=== PATIENT | male | born 1955 | race Caucasian/White ===

== ENCOUNTER → 2017-09-11 | Outpatient (CLI) | payer OTHER | LOC: MMGSC 15:34 | PROVIDERS: ATTEND Family Medicine | DX: A51.39 Other secondary syphilis of skin (principal) | CPT/HCPCS: 87070; 87075; 87205 ==

== ENCOUNTER → 2017-10-01 | Outpatient (CLI) | payer OTHER ==
[2017-10-01 17:48] LABS: Blood Urea Nitrogen 21 mg/dL (9-20); Non-African American GFR(MDRD) >60 (>60 ml/min/1.73 sqM)
--- NOTE | 2017-10-02 11:14 | CT ---
EXAMINATION TYPE: CT abdomen pelvis w con DATE OF EXAM: 10/01/2017 COMPARISON: NONE INDICATION: Abnormal US. Right sided bowel mass per patient DLP: 2069 mGycm, Automated exposure control for dose reduction was used. CONTRAST: 100 mL of Omnipaque 300. Study performed with Oral Contrast TECHNIQUE: Axial images were obtained from above the diaphragm to the pubic rami in the axial plane a t 5 mm thick sections. Reconstructed images are reviewed on the computer in the coronal plane. FINDINGS: Limited CT sections are obtained the lung bases. The lung bases are clear. CT ABDOMEN: Liver: Some mild fatty infiltration liver may be present. Spleen: Normal Pancreas: Normal Adrenal glands: The adrenal glands are normal. Gallbladder: Gallstones within the neck of the gallbladder. Kidneys: No masses are evident. No hydronephrosis is present. No cysts are present. Delayed images were obtained through the kidneys, which remain unremarkable. Aorta: Normal Inferior vena cava: Normal. CT PELVIS: Loops of bowel within the abdomen and pelvis are normal. There are loops of bowel which are incom pletely distended or lack oral contrast limiting their evaluation. There is a report of a mass within the right bowel, fecal debris, prominent ileocecal valve, or underlying mass could be considered. Th is is nonspecific. Mass is not otherwise identified. Appendix: Normal as visualized. Urinary bladder: Normal. Genitourinary structures: Prostate is slightly prominent. Osseous structures: No suspicious lytic or sclerotic lesions. Facet changes are present L4-5. IMPRESSIONS: 1. Right-sided bowel mass is not clearly identified but may be within the cecum 2. Mild fatty infiltration liver. 3. Gallstone within the gallbladder. 4. CT abdomen pelvis otherwise appears unremarkable.
== END | disposition home or self-care (01) ==
LOC: RADCTMAIN 17:19
PROVIDERS: ATTEND Family Medicine
DX: N50.9 Disorder of male genital organs, unspecified (principal); K76.0 Fatty (change of) liver, not elsewhere classified; K80.20 Calculus of gallbladder without cholecystitis without obstruction
CPT/HCPCS: 82565; 84520; 74177; 36415; Q9967

== ENCOUNTER 2017-11-01 06:56 | Day surgery (SDC) | payer OTHER ==
[2017-10-29 14:35] VITALS: BMI 31.1
[~2017-11-01 06:56] MED LIST: LACTATED RINGERS 1,000 ML IV SCH; LIDOCAINE 1% 20 ML VIAL (10MG/ML) FOR IV START INTRADERMA PRN
[2017-11-01] MEDS ORDERED: LACTATED RINGERS 1,000 ML IV ONE (06:59)
[2017-11-01 07:09] VITALS: RESP 18; TEMP 97.3
[2017-11-01] MEDS ORDERED: MIDAZOLAM 2 MG/2 ML VIAL IVP ONE (07:16)
[2017-11-01 07:18] LABS: Glucose,Whole Blood 198 mg/dL (75-99)
[2017-11-01] MEDS ORDERED: MIDAZOLAM 2 MG/2 ML VIAL IV ONE (07:21)
[2017-11-01] MEDS ORDERED: PROPOFOL 10 MG/ML 20 ML VIAL IV ONE (07:48)
--- NOTE | 2017-11-01 07:53 | P.GSHP ---
History of Present Illness H&P Date: 11/01/17 Chief Complaint: History of colon polyps This is a 62-year-old male referred from Dr. Eli Segura. Patient presents today for colonoscopy. He has a history of colon polyps. Past Medical History Past Medical History: Diabetes Mellitus, Hyperlipidemia, Thyroid Disorder Additional Past Medical History / Comment(s): CURRENT COUGH. STATES "LUMP WAS FOUND ON CT SCAN" PAST HX GERD History of Any Multi-Drug Resistant Organisms: None Reported Past Surgical History: Joint Replacement, Orthopedic Surgery Additional Past Surgical History / Comment(s): TOTAL LT KNEE; IVANA SHOULDER SURG. EGD 09/06/15, LAPARASCOPIC REMI FUNDOPLASTY Past Anesthesia/Blood Transfusion Reactions: Motion Sickness, Postoperative Nausea & Vomiting (PONV) Smoking Status: Never smoker - Past Family History Mother Family Medical History: Cancer Father Family Medical History: No Reported History Brother(s) Family Medical History: No Reported History Sister(s) Family Medical History: No Reported History Medications and Allergies Home Medications Medication Instructions Recorded Confirmed Type Levothyroxine Sodium [Synthroid] 50 mcg PO DAILY 09/03/15 11/01/17 History Simvastatin [Zocor] 20 mg PO DAILY 09/03/15 11/01/17 History metFORMIN HCL 1,000 mg PO BID 09/03/15 11/01/17 History Allergies Allergy/AdvReac Type Severity Reaction Status Date / Time Penicillins Allergy Rash/Hives Verified 11/01/17 07:03 Surgical - Exam Vital Signs Temp Pulse Resp BP Pulse Ox 97.3 F L 85 18 135/77 95 11/01/17 07:07 11/01/17 07:07 11/01/17 07:07 11/01/17 07:07 11/01/17 07:07 - General well developed, no distress - Eyes PERRL - ENT normal pinna - Neck no masses - Respiratory normal expansion - Cardiovascular Rhythm: regular - Abdomen Abdomen: soft, non tender Results - Labs Abnormal Lab Results - Last 24 Hours (Table) 11/01/17 Range/Units 07:14 POC Glucose (mg/dL) 198 H (75-99) mg/dL Assessment and Plan Assessment: History of colon polyps. We'll perform colonoscopy.
--- NOTE | 2017-11-01 08:01 | P.OP ---
Date of Procedure: 11/01/17 Preoperative Diagnosis: History of colon polyps Postoperative Diagnosis: Normal colonoscopy Procedure(s) Performed: Colonoscopy Anesthesia: MAC Surgeon: Freddie Meza Pathology: none sent Condition: stable Disposition: PACU Description of Procedure: PROCEDURE: The patient was placed on the endoscopy table in the lateral position. Digital rectal examination was performed which revealed no abnormalities. The prostate was symmetrical without nodules. Flexible colonoscope was then placed in the patient's anus and passed throughout the entire colon. The ileocecal valve was visualized. The cecum, ascending, transverse, descending and sigmoid colon were normal. The rectum was normal as well. There were no masses, polyps or diverticula noted in the entire colon. SUMMARY OF FINDINGS: Normal colonoscopy.
[2017-11-01 08:34] VITALS: BP 109/63; PULSE 73
== END 2017-11-01 08:38 | disposition home or self-care (01) ==
LOC: ORWHC2ENDO 06:56
PROVIDERS: ATTEND Surgery
DX: Z12.11 Encounter for screening for malignant neoplasm of colon (principal); Z86.010 Personal history of colon polyps; E11.9 Type 2 diabetes mellitus without complications; E78.5 Hyperlipidemia, unspecified; E07.9 Disorder of thyroid, unspecified; Z79.84 Long term (current) use of oral hypoglycemic drugs; Z79.899 Other long term (current) drug therapy; Z79.890 Hormone replacement therapy; Z88.0 Allergy status to penicillin
CPT/HCPCS: J2250; J2704; G0105; 45378

== ENCOUNTER → 2018-03-02 | Outpatient (CLI) | payer OTHER ==
[2018-03-02 09:53] LABS: Basophils % (A) 0 %; Eosinophils # (A) 0.1 k/uL (0-0.7); Eosinophils % (A) 2 %; HCT 42.7 % (39.0-53.0); HGB 14.9 gm/dL (13.0-17.5); Lymphocytes # (A) 1.8 k/uL (1.0-4.8); Lymphocytes % (A) 29 %; MCH 31.3 pg (25.0-35.0); MCV 89.6 fL (80.0-100.0); Mean Platelet Volume 7.6; Monocytes # (A) 0.3 k/uL (0-1.0); Monocytes % (A) 6 %; Neutrophils # (A) 3.8 k/uL (1.3-7.7); Neutrophils % (A) 62 %; Platelet Count 189 k/uL (150-450); RBC 4.77 m/uL (4.30-5.90); RDW 13.2 % (11.5-15.5); WBC 6.1 k/uL (3.8-10.6)
[2018-03-02 10:11] LABS: ALT 29 U/L (21-72); AST 14 U/L (17-59); Albumin 4.1 g/dL (3.5-5.0); Alkaline Phosphatase 46 U/L (38-126); Anion Gap 11 mmol/L; Blood Urea Nitrogen 17 mg/dL (9-20); Calcium 9.5 mg/dL (8.4-10.2); Carbon Dioxide 24 mmol/L (22-30); Chloride 104 mmol/L (98-107); Cholesterol 134 mg/dL (<200); Glucose 194 mg/dL (74-99); HDL Cholesterol 57 mg/dL (40-60); LDL Cholesterol,Calculated 55 mg/dL (0-99); Potassium 4.2 mmol/L (3.5-5.1); Sodium 139 mmol/L (137-145); Total Bilirubin 0.5 mg/dL (0.2-1.3); Total Protein 6.4 g/dL (6.3-8.2); Triglycerides 110 mg/dL (<150)
[2018-03-02 10:27] LABS: T4, Free (Free Thyroxine) 1.09 ng/dL (0.78-2.19)
== END | disposition home or self-care (01) ==
LOC: LABWHC1 09:27
PROVIDERS: ATTEND Family Medicine
DX: E11.9 Type 2 diabetes mellitus without complications (principal); E03.9 Hypothyroidism, unspecified; E78.5 Hyperlipidemia, unspecified
CPT/HCPCS: 36415; 80053; 80061; 83036; 84439; 84443; 85025

== ENCOUNTER → 2018-05-31 | Outpatient (CLI) | payer OTHER ==
[2018-05-31 19:30] LABS: Hemoglobin A1C 7.7 % (4.0-6.0)
== END | disposition home or self-care (01) ==
LOC: LABWHC1 09:03
PROVIDERS: ATTEND Family Medicine
DX: E11.9 Type 2 diabetes mellitus without complications (principal)
CPT/HCPCS: 36415; 82043; 82570; 83036

== ENCOUNTER → 2018-12-19 | Outpatient (CLI) | payer OTHER ==
--- NOTE | 2018-12-19 15:33 | CONS ---
CONSULTATION DATE OF SERVICE: 12/19/2018 A 63-year-old gentleman who has been evaluated in the [facility] for possible obstructive sleep apnea-hypopnea syndrome. HISTORY OF PRESENT ILLNESS/SLEEP-WAKE EVALUATION: Patient usual sleep schedule from 10 p.m. to 5 am on week days and from 10 p.m. to 7 - 8 a.m. on weekends. Sometimes he has problem with falling asleep, has TV set in bedroom. He sleeps in different positions, usually on the side. According to his , he has loud snoring. He wakes up from sleep multiple times including nocturia. Positive history of twitching legs during the sleep. No history of hypnagogic hallucinations, sleep paralysis or cataplexy. PAST MEDICAL HISTORY: Positive for hypothyroidism, hyperlipidemia, diabetes, anxiety. PAST SURGICAL HISTORY: Surgery for hiatal hernia, tonsillectomy, total left knee replacement. MEDICATIONS: Zocor, Synthroid, Celexa, Januvia, glimepiride. SOCIAL HISTORY: Negative for smoking. Alcohol consumption occasional. FAMILY HISTORY: Hyperlipidemia, snoring, acid reflux, diabetes, thyroid problems. REVIEW OF SYSTEMS: Awakenings from sleep, sometimes tiredness and sleepiness during the day and difficulties to initiate sleep. PHYSICAL EXAM: gentleman without distress. BP 115/66, HR 90, RR 16, height 5 foot, 7 inches, weight 215 pounds. Body mass index 33.6, temperature 98.4, oxygen saturation at room air 98%. OROPHARYNX: Low position of soft palate. Mallampati III. Slight restriction of nasal breathing. Wide neck, 17-1/4 inches in circumference. ABDOMEN: Slightly obese. d LUNGS Clear to percussion and to auscultation. Good air exchange. No wheezing or rhonchi. HEART S1, S2 regular. No murmurs, gallops, or rubs. EXTREMITIES No clubbing or cyanosis. DIRECTOR OF PEDIATRIC REHABILITATION Awake, alert, and oriented X3. Cranial nerves 2 to 7 intact. There is no fasciculation or atrophy. noted. No focal deficits observed. IMPRESSION: 1. Snoring, awakenings from sleep, low position of soft palate, wide neck, obstructive sleep apnea-hypopnea syndrome. 2. Mild obesity, body mass index 33.6. 3. Hypothyroidism. 4. Hyperlipidemia. 5. Diabetes mellitus. 6. History of anxiety. 7. Status post total left knee replacement. 8. Status post surgery for hiatal hernia. 9. Status post tonsillectomy. PLAN: 1. Polysomnography for evaluation of patient's breathing during sleep. 2. CPAP/BiPAP titration if sleep study confirms obstructive sleep apnea-hypopnea syndrome. 3. Preferable position during sleep on the side. 4. No driving if patient feels any sleepiness. 5. I will see patient for follow up visit to explain results of testing and following plan. Thank you very much for referring this patient for consultation. Sincerely, Charles Cross MD, PhD, FAASM Diplomat of [place] [employer] [place] [employer] Developer of [facility] [place]. MMODL / IJN: [id number] /
== END ==
LOC: SLEEP 13:47
PROVIDERS: ATTEND Internal Medicine
DX: G47.33 Obstructive sleep apnea (adult) (pediatric) (principal); E66.9 Obesity, unspecified; E03.9 Hypothyroidism, unspecified; E78.5 Hyperlipidemia, unspecified; E11.9 Type 2 diabetes mellitus without complications; F41.9 Anxiety disorder, unspecified; Z90.89 Acquired absence of other organs; Z96.652 Presence of left artificial knee joint; Z98.890 Other specified postprocedural states; Z99.89 Dependence on other enabling machines and devices; Z68.33 Body mass index [BMI] 33.0-33.9, adult; Z79.899 Other long term (current) drug therapy
CPT/HCPCS: 99211

== ENCOUNTER 2019-03-26 08:52 | Inpatient (IN) | payer OTHER ==
[2019-03-26] MEDS ORDERED: SODIUM CHLORIDE 0.9% 1,000 ML IV STA (09:18)
[2019-03-26] MEDS ORDERED: ASPIRIN 81 MG PO STA (09:18)
[2019-03-26 09:53] LABS: Appearance,Urine Clear (Clear); Bilirubin,Urine Negative (Negative); Blood,Urine Negative (Negative); Color,Urine Light Yellow; Glucose,Urine (UA) 4+ (Negative); Ketones,Urine 1+ (Negative); Leukocyte Esterase,Urine Negative (Negative); Nitrite,Urine Negative (Negative); Protein,Urine Negative (Negative); Specific Gravity,Urine 1.031 (1.001-1.035); Urobilinogen,Urine <2.0 mg/dL (<2.0)
--- NOTE | 2019-03-26 09:54 | ED ---
General Adult HPI - General Chief complaint: Chest Pain Stated complaint: Chest pain Time Seen by Provider: 03/26/19 09:00 Source: EMS, RN notes reviewed, old records reviewed Mode of arrival: EMS Limitations: no limitations - History of Present Illness Initial comments: Patient is a 3-year-old male presents emergency department today for evaluation for onset of substernal chest pain at 7 AM. He reports this happened while he was at work. He wasn't feeling well where so his boss drove him home. It while he was at home he called his . At that time she noted he had some slurred words and was complaining of chest pain. She called EMS and EMS brought the Patient to emergency. He did receive aspirin. He is diabetic. No previous cardiac history or stroke history's. Patient states that he is some H has resolved at this time. He states he has a 2 out of 10 chest pain. - Related Data Home Medications Medication Instructions Recorded Confirmed Levothyroxine Sodium [Synthroid] 50 mcg PO DAILY 09/03/15 03/26/19 Simvastatin [Zocor] 20 mg PO DAILY 09/03/15 03/26/19 Citalopram Hydrobromide [CeleXA] 20 mg PO DAILY 03/26/19 03/26/19 glipiZIDE [Glucotrol] 2.5 mg PO DAILY PRN 03/26/19 03/26/19 sitaGLIPtin PHOSPHATE [Januvia] 100 mg PO DAILY 03/26/19 03/26/19 Allergies Allergy/AdvReac Type Severity Reaction Status Date / Time Penicillins Allergy Rash/Hives Verified 03/26/19 10:03 Review of Systems ROS Statement: Those systems with pertinent positive or pertinent negative responses have been documented in the HPI. ROS Other: All systems not noted in ROS Statement are negative. Past Medical History Past Medical History: Diabetes Mellitus, Hyperlipidemia, Thyroid Disorder Additional Past Medical History / Comment(s): CURRENT COUGH. STATES "LUMP WAS FOUND ON CT SCAN" PAST HX GERD History of Any Multi-Drug Resistant Organisms: None Reported Past Surgical History: Joint Replacement, Orthopedic Surgery Additional Past Surgical History / Comment(s): TOTAL LT KNEE; IVANA SHOULDER SURG. EGD 09/06/15, LAPARASCOPIC REMI FUNDOPLASTY Past Anesthesia/Blood Transfusion Reactions: Motion Sickness, Postoperative Nausea & Vomiting (PONV) Past Psychological History: No Psychological Hx Reported Smoking Status: Never smoker Past Alcohol Use History: Occasional - Past Family History Mother Family Medical History: Cancer Father Family Medical History: No Reported History Brother(s) Family Medical History: No Reported History Sister(s) Family Medical History: No Reported History General Exam - General Exam Comments Initial Comments: Pleasant 63-year-old male. Alert and oriented 3. No significant distress. Limitations: no limitations General appearance: alert, in no apparent distress Head exam: Present: atraumatic, normocephalic, normal inspection Eye exam: Present: normal appearance, PERRL, EOMI. Absent: scleral icterus, conjunctival injection, periorbital swelling ENT exam: Present: normal exam, mucous membranes moist Neck exam: Present: normal inspection. Absent: tenderness, meningismus, lymphadenopathy Respiratory exam: Present: normal lung sounds bilaterally. Absent: respiratory distress, wheezes, rales, rhonchi, stridor Cardiovascular Exam: Present: regular rate, normal rhythm, normal heart sounds. Absent: systolic murmur, diastolic murmur, rubs, gallop, clicks GI/Abdominal exam: Present: soft, normal bowel sounds. Absent: distended, tenderness, guarding, rebound, rigid Extremities exam: Present: normal inspection, full ROM, normal capillary refill. Absent: tenderness, pedal edema, joint swelling, calf tenderness Back exam: Present: normal inspection Neurological exam: Present: alert, oriented X3, CN II-XII intact Psychiatric exam: Present: normal affect, normal mood Skin exam: Present: warm, dry, intact, normal color. Absent: rash Course Vital Signs 03/26/19 03/26/19 03/26/19 09:06 09:10 10:58 Temperature 98.0 F Pulse Rate 59 L 63 Pulse Rate [ 60 Bilateral Manager Site ] Respiratory 18 18 Rate Blood Pressure 136/80 118/72 O2 Sat by Pulse 99 97 Oximetry EKG Findings - EKG Comments: EKG Findings:: EKG performed at 903 shows sinus rhythm. Age-indeterminate. Cannot rule out anterior infarct age-indeterminate. Abnormal EKG. Ventricular rate 63 bpm. Verbal 160 ms. Care estrogen 94 ms. QT QTc is 436/446 ms. Medical Decision Making - Medical Decision Making Patient is a 63-year-old male process returns today with substernal chest pain starting at 7 AM today while work. also reports when she when he called her to tell her symptoms he had some episodes of slurred speech. Upon arrival Patient has no neurological deficits. Speech is normal. Patient complains of a 2 out of 10 chest pain after arrival. Patient did have aspirin on EMS arrival. At this time patient's troponin was negative for any acute changes. CT of brain and C-spine showed no acute process. Chest x-ray shows interstitial disease but otherwise unremarkable. Patient has concern for continued chest pain related to exertional illness the Patient. With the possible TIA experience will give the Patient on aspirin, further anticoagulation recommendations based on neurology and cardiology findings. Discussed the case with Dr. Kay. - Lab Data Result diagrams: 03/26/19 09:15 03/26/19 09:15 Lab Results 03/26/19 03/26/19 03/26/19 Range/Units 09:15 09:15 09:15 WBC 8.2 (3.8-10.6) k/uL RBC 4.59 (4.30-5.90) m/uL Hgb 14.2 (13.0-17.5) gm/dL Hct 41.4 (39.0-53.0) % MCV 90.2 (80.0-100.0) fL MCH 30.9 (25.0-35.0) pg MCHC 34.3 (31.0-37.0) g/dL RDW 13.1 (11.5-15.5) % Plt Count 165 (150-450) k/uL Neutrophils % 84 % Lymphocytes % 11 % Monocytes % 3 % Eosinophils % 2 % Basophils % 0 % Neutrophils # 6.9 (1.3-7.7) k/uL Lymphocytes # 0.9 L (1.0-4.8) k/uL Monocytes # 0.3 (0-1.0) k/uL Eosinophils # 0.1 (0-0.7) k/uL Basophils # 0.0 (0-0.2) k/uL PT (9.0-12.0) sec INR (<1.2) APTT (22.0-30.0) sec Sodium 137 (137-145) mmol/L Potassium 4.0 (3.5-5.1) mmol/L Chloride 106 (98-107) mmol/L Carbon Dioxide 19 L (22-30) mmol/L Anion Gap 12 mmol/L BUN 19 (9-20) mg/dL Creatinine 0.70 (0.66-1.25) mg/dL Est GFR (CKD-EPI)AfAm >90 (>60 ml/min/1.73 sqM) Est GFR (CKD-EPI)NonAf >90 (>60 ml/min/1.73 sqM) Glucose 364 H (74-99) mg/dL Calcium 9.3 (8.4-10.2) mg/dL Magnesium 1.7 (1.6-2.3) mg/dL Total Bilirubin 0.9 (0.2-1.3) mg/dL AST 16 L (17-59) U/L ALT 22 (21-72) U/L Alkaline Phosphatase 60 (38-126) U/L Troponin I (0.000-0.034) ng/mL NT-Pro-B Natriuret Pep 26 pg/mL Total Protein 6.5 (6.3-8.2) g/dL Albumin 4.1 (3.5-5.0) g/dL Amylase 57 (30-110) U/L Lipase 251 (23-300) U/L Urine Color Urine Appearance (Clear) Urine pH (5.0-8.0) Ur Specific [place] (1.001-1.035) Urine Protein (Negative) Urine Glucose (UA) (Negative) Urine Ketones (Negative) Urine Blood (Negative) Urine Nitrite (Negative) Urine Bilirubin (Negative) Urine Urobilinogen (<2.0) mg/dL Ur Leukocyte Esterase (Negative) 03/26/19 03/26/19 03/26/19 Range/Units 09:15 09:15 09:15 WBC (3.8-10.6) k/uL RBC (4.30-5.90) m/uL Hgb (13.0-17.5) gm/dL Hct (39.0-53.0) % MCV (80.0-100.0) fL MCH (25.0-35.0) pg MCHC (31.0-37.0) g/dL RDW (11.5-15.5) % Plt Count (150-450) k/uL Neutrophils % % Lymphocytes % % Monocytes % % Eosinophils % % Basophils % % Neutrophils # (1.3-7.7) k/uL Lymphocytes # (1.0-4.8) k/uL Monocytes # (0-1.0) k/uL Eosinophils # (0-0.7) k/uL Basophils # (0-0.2) k/uL PT 10.0 (9.0-12.0) sec INR 0.9 (<1.2) APTT 21.0 L (22.0-30.0) sec Sodium (137-145) mmol/L Potassium (3.5-5.1) mmol/L Chloride (98-107) mmol/L Carbon Dioxide (22-30) mmol/L Anion Gap mmol/L BUN (9-20) mg/dL Creatinine (0.66-1.25) mg/dL Est GFR (CKD-EPI)AfAm (>60 ml/min/1.73 sqM) Est GFR (CKD-EPI)NonAf (>60 ml/min/1.73 sqM) Glucose (74-99) mg/dL Calcium (8.4-10.2) mg/dL Magnesium (1.6-2.3) mg/dL Total Bilirubin (0.2-1.3) mg/dL AST (17-59) U/L ALT (21-72) U/L Alkaline Phosphatase (38-126) U/L Troponin I <0.012 (0.000-0.034) ng/mL NT-Pro-B Natriuret Pep pg/mL Total Protein (6.3-8.2) g/dL Albumin (3.5-5.0) g/dL Amylase (30-110) U/L Lipase (23-300) U/L Urine Color Light Yellow Urine Appearance Clear (Clear) Urine pH 8.0 (5.0-8.0) Ur Specific [place] 1.031 (1.001-1.035) Urine Protein Negative (Negative) Urine Glucose (UA) 4+ H (Negative) Urine Ketones 1+ H (Negative) Urine Blood Negative (Negative) Urine Nitrite Negative (Negative) Urine Bilirubin Negative (Negative) Urine Urobilinogen <2.0 (<2.0) mg/dL Ur Leukocyte Esterase Negative (Negative) - Radiology Data Radiology results: report reviewed DT of the brain is negative for any acute intracranial process. Incidentally noted foci of cavernous sinus air likely from venipuncture. Mild para nasal sinus disease. Left basilar atelectasis favored over the infiltrate on chest x- ray. Disposition Clinical Impression: Chest pain, TIA (transient ischemic attack) Disposition: ADMITTED IP TO THIS HOSP Condition: Stable Is patient prescribed a controlled substance at d/c from ED?: No Referrals: Eli Livingston MD [Primary Care Provider] - 1-2 days Time of Disposition: 11:38
--- NOTE | 2019-03-26 09:55 | CT ---
EXAMINATION TYPE: CT brain wo con DATE OF EXAM: 03/26/2019 COMPARISON: None HISTORY: Dizziness and slurred speech. CT DLP: 1087.4 mGycm Automated exposure control for dose reduction was used. FINDINGS: No acute intracranial hemorrhage, midline shift or mass effect. [place]-white matter interface is well-m aintained. Foci of air internally seen within the cavernous sinus, likely from venipuncture. Moderate moderate mucosal thickening is seen within the ethmoid sinuses and scant within the maxillary sinuse s. Frontal sinuses and mastoid air cells are well aerated as is sphenoid sinus. Calvarium appears int act. No suspicious extra axial fluid collection is seen. No hydrocephalus. IMPRESSION: NO ACUTE INTRACRANIAL PROCESS. INCIDENTALLY NOTED FOCI OF CAVERNOUS SINUS AIR ARE LIKELY FROM VENIPUN CTURE. MILD PARANASAL SINUS DISEASE.
[2019-03-26 09:56] LABS: INR 0.9 (<1.2)
--- NOTE | 2019-03-26 10:00 | XR ---
EXAMINATION TYPE: XR chest 2V DATE OF EXAM: 03/26/2019 COMPARISON: NONE TECHNIQUE: PA and lateral views submitted. HISTORY: Chest pain FINDINGS: The lungs are clear and there is no pneumothorax, pleural effusion, or focal pneumonia. Subsegmenta l changes at the left lung base. Hypertrophic change of the vertebral column. IMPRESSION: 1. Left basilar atelectasis favored over infiltrate..
[2019-03-26 10:01] LABS: ALT 22 U/L (21-72); AST 16 U/L (17-59); African American GFR (CKD) >90 (>60 ml/min/1.73 sqM); Albumin 4.1 g/dL (3.5-5.0); Alkaline Phosphatase 60 U/L (38-126); Amylase 57 U/L (30-110); Anion Gap 12 mmol/L; Blood Urea Nitrogen 19 mg/dL (9-20); Calcium 9.3 mg/dL (8.4-10.2); Carbon Dioxide 19 mmol/L (22-30); Chloride 106 mmol/L (98-107); Glucose 364 mg/dL (74-99); Lipase 251 U/L (23-300); Magnesium 1.7 mg/dL (1.6-2.3); Sodium 137 mmol/L (137-145); Total Bilirubin 0.9 mg/dL (0.2-1.3); Total Protein 6.5 g/dL (6.3-8.2)
[2019-03-26 10:23] LABS: Basophils % (A) 0 %; Eosinophils # (A) 0.1 k/uL (0-0.7); Eosinophils % (A) 2 %; HCT 41.4 % (39.0-53.0); HGB 14.2 gm/dL (13.0-17.5); Lymphocytes # (A) 0.9 k/uL (1.0-4.8); Lymphocytes % (A) 11 %; MCH 30.9 pg (25.0-35.0); MCHC 34.3 g/dL (31.0-37.0); MCV 90.2 fL (80.0-100.0); Mean Platelet Volume 7.6; Monocytes # (A) 0.3 k/uL (0-1.0); Monocytes % (A) 3 %; Neutrophils # (A) 6.9 k/uL (1.3-7.7); Neutrophils % (A) 84 %; Platelet Count 165 k/uL (150-450); RBC 4.59 m/uL (4.30-5.90); RDW 13.1 % (11.5-15.5); WBC 8.2 k/uL (3.8-10.6)
[2019-03-26] MEDS ORDERED: MORPHINE SULFATE 4 MG/ML SYRINGE IVP STA (11:20)
[2019-03-26] MEDS ORDERED: IBUPROFEN 400 MG TAB PO PRN (11:38)
[2019-03-26] MEDS ORDERED: ACETAMINOPHEN TAB 325 MG TAB PO PRN ×2 (11:38→13:54)
[2019-03-26] MEDS ORDERED: ONDANSETRON 4 MG/2 ML VIAL IVP PRN (11:38)
[2019-03-26] MEDS ORDERED: MORPHINE SULFATE 4 MG/ML SYRINGE IV PRN (11:38)
[2019-03-26] MEDS ORDERED: NALOXONE 0.4 MG/ML 1 ML VIAL IV PRN (11:38)
[2019-03-26] MEDS ORDERED: HYDROmorphone 0.5 MG/0.5 ML SYRINGE IVP PRN (11:38)
[2019-03-26] MEDS ORDERED: NITROGLYCERIN SL TABS 0.4 MG TAB SUBLINGUAL PRN (13:54)
--- NOTE | 2019-03-26 14:36 | P.HPIM ---
History of Present Illness H&P Date: 03/26/19 Chief Complaint: Chest pain and slurred speech The patient is a 63-year-old male with a past with a medical history of with type 2 diabetes, hyperlipidemia who presents to the ER via EMS after having chest pain and slurred speech this morning. Apparently the patient woke up and was doing fine and while at work began having sharp substernal moderate nonradiating chest discomfort associated with some lightheadedness dizziness, nausea and diaphoresis. The patient went home and notified his who at that time noticed some slurred speech over the phone and then proceeded to call EMS. On route the patient had 4 baby aspirin and notes that his slurred speech is now resolved. He denied any headaches or vision changes, focal weakness, facial droop, trouble swallowing or issues with gait imbalance. Patient currently rating pain at a 2. The patient reports previously having nuclear stress test in 2015, review of records indicates inability to exclude distal ischemic change in the inferior wall of the left ventricle. Patient's reports history of type 2 diabetes last A1c in October was approximately 8.1. In the ER the patient had a comprehensive workup including CT of the head that was negative for any acute intracranial pathology. EKG showed normal sinus mechanism without any suggestion of acute ischemia, initial troponin was negative at less than 0.0121 blood sugar was elevated at 364. The patient was placed on morphine given a liter of fluids and recommended for admission to rule out ACS/TIA Review of Systems Pertinent positives per HPI all other systems is otherwise negative Past Medical History Past Medical History: Diabetes Mellitus, GERD/Reflux, Hyperlipidemia, Osteoarthritis (OA), Thyroid Disorder Additional Past Medical History / Comment(s): NIDDM type II, hypothyroid, past GERD-not an issue since Remi, arthritis L knee. History of Any Multi-Drug Resistant Organisms: None Reported Past Surgical History: Joint Replacement, Orthopedic Surgery, Tonsillectomy Additional Past Surgical History / Comment(s): L KNEE ARTHROSCOPY, TOTAL LT KNEE; IVANA SHOULDER SURG (LEFT SIDE DONE 3 TIMES), EGD 09/06/15, LAPROSCOPIC REMI FUNDOPLASTY, COLONOSCOPY Past Anesthesia/Blood Transfusion Reactions: Motion Sickness, Postoperative Na usea & Vomiting (PONV) Smoking Status: Never smoker - Past Family History Mother Family Medical History: Cancer Father History Unknown: Yes Family Medical History: No Reported History Additional Family Medical History / Comment(s): Father in a MVA when pt was 5 yrs old. Brother(s) Family Medical History: No Reported History Sister(s) Family Medical History: No Reported History Medications and Allergies Home Medications Medication Instructions Recorded Confirmed Type Levothyroxine Sodium [Synthroid] 50 mcg PO DAILY 09/03/15 03/26/19 History Simvastatin [Zocor] 20 mg PO DAILY 09/03/15 03/26/19 History Citalopram Hydrobromide [CeleXA] 20 mg PO DAILY 03/26/19 03/26/19 History glipiZIDE [Glucotrol] 2.5 mg PO DAILY PRN 03/26/19 03/26/19 History sitaGLIPtin PHOSPHATE [Januvia] 100 mg PO DAILY 03/26/19 03/26/19 History Allergies Allergy/AdvReac Type Severity Reaction Status Date / Time Penicillins Allergy Rash/Hives Verified 03/26/19 10:03 Physical Exam Vitals: Vital Signs Temp Pulse Pulse Resp BP Pulse Ox 03/26/19 13:00 98.4 F 60 18 125/95 97 03/26/19 10:58 63 18 118/72 97 03/26/19 09:10 60 03/26/19 09:06 98.0 F 59 L 18 136/80 99 Intake and Output 03/25/19 03/26/19 03/26/19 22:59 06:59 14:59 Other: Weight 95.254 kg Constitutional: No acute distress, conversant, pleasant Eyes: Anicteric sclerae, moist conjunctiva, no lid-lag, PERRLA ENMT: NC/AT,Oropharynx clear, no erythema, exudates Neck:Supple, FROM, no masses, or JVD, No carotid bruits; No thyromegaly Lungs: Clear to auscultation, Clear to percussion, Normal respiratory effort, no accessory muscle use Cardiovascular: Heart regular in rate and rhythm, No murmurs, gallops, or rubs no peripheral edema Abdominal: Soft Nontender, nom distended, no guarding, no rebound or rigidity, Normoactive bowel sounds No hepatomegaly, No splenomegaly, No palpable mass No abdominal wall hernia noted Skin: Normal temperature, tone, texture, turgor, No induration No subcutaneous nodules, No rash, lesions, No ulcers Extremities:No digital cyanosis No clubbing, Pedal pulses intact and symmetrical Radial pulses intact and symmetrical Normal gait and station, No calf tenderness Psychiatric: Alert and oriented to person, place and time, Appropriate affect Intact judgement Neuro: Muscles Strength 5/5 in all 4 extremities, Sensation to light touch grossly present throughout, Cranial nerves II-XII grossly intact. No focal sensory deficits Results CBC & Chem 7: 03/26/19 09:15 03/26/19 09:15 Labs: Abnormal Lab Results - Last 24 Hours (Table) 03/26/19 03/26/19 03/26/19 Range/Units 09:15 09:15 09:15 Lymphocytes # 0.9 L (1.0-4.8) k/uL APTT 21.0 L (22.0-30.0) sec Carbon Dioxide 19 L (22-30) mmol/L Glucose 364 H (74-99) mg/dL AST 16 L (17-59) U/L Urine Glucose (UA) (Negative) Urine Ketones (Negative) 03/26/19 Range/Units 09:15 Lymphocytes # (1.0-4.8) k/uL APTT (22.0-30.0) sec Carbon Dioxide (22-30) mmol/L Glucose (74-99) mg/dL AST (17-59) U/L Urine Glucose (UA) 4+ H (Negative) Urine Ketones 1+ H (Negative) Thrombosis Risk Factor Assmnt - Choose All That Apply Any of the Below Risk Factors Present?: Yes Each Factor Represents 1 point: Obesity (BMI >25) Other Risk Factors: Yes Each Risk Factor Represents 2 Points: Age 61-74 years Other congenital or acquired thrombophilia - If yes, enter type in comment: No Thrombosis Risk Factor Assessment Total Risk Factor Score: 3 Thrombosis Risk Factor Assessment Level: Moderate Risk Assessment and Plan (1) Chest pain Current Visit: Yes Status: Acute Code(s): R07.9 - CHEST PAIN, UNSPECIFIED SNOMED Code(s): 42930037 (2) TIA (transient ischemic attack) Current Visit: Yes Status: Acute Code(s): G45.9 - TRANSIENT CEREBRAL ISCHEMIC ATTACK, UNSPECIFIED SNOMED Code(s): 514199423 (3) Type 2 diabetes mellitus with hyperglycemia Current Visit: Yes Status: Acute Code(s): E11.65 - TYPE 2 DIABETES MELLITUS WITH HYPERGLYCEMIA SNOMED Code(s): 862251341304689 (4) GERD (gastroesophageal reflux disease) Current Visit: No Status: Acute Code(s): K21.9 - GASTRO-ESOPHAGEAL REFLUX DISEASE WITHOUT ESOPHAGITIS SNOMED Code(s): 852822173 (5) Hyperlipidemia Current Visit: Yes Status: Acute Code(s): E78.5 - HYPERLIPIDEMIA, UNSPEC IFIED SNOMED Code(s): 28986210 Plan: The patient is placed in observation anticipate a less than 2 midnight stay after presenting with chest pain with need to rule out acute coronary syndrome. Workup to this point is been negative with troponin less than 0.012 and EKG negative for any significant acute ischemia. We'll continue antiplatelet therapy with aspirin, per chest pain orders we'll add sublingual nitro glycerin when necessary, continue to trend sequential cardiac enzymes. Will order echocardiogram and carotid Dopplers and follow-up lipid panel. We'll also check A1c, monitor blood sugars with Accu-Cheks supplemented with correctional scale insulin coverage. Will consult cardiology and urology for further recommendations. Continue to follow his clinical course. CODE STATUS: Full code Discussed plan of care with: Patient and his Anticipated discharge : 1-2 days Prophylaxis: PPI therapy and SCDs/heparin Time with Patient: Greater than 30
--- NOTE | 2019-03-26 19:23 | ECHOF ---
Referral Reason:chest pain MEASUREMENTS -------- HEIGHT: 172.7 cm WEIGHT: 95.3 kg BP: RVIDd: 2.5 cm (< 3.3) IVSd: 1.6 cm (0.6 - 1.1) LVIDd: 4.2 cm (3.9 - 5.3) LVPWd: 1.9 cm (0.6 - 1.1) IVSs: 2.0 cm LVIDs: 1.8 cm LVPWs: 1.8 cm LAESV Index (A-L): 19.11 ml/m Ao Diam: 3.6 cm (2.0 - 3.7) AV Cusp: 2.5 cm (1.5 - 2.6) LA Diam: 3.7 cm (2.7 - 3.8) MV EXCURSION: 23.254 mm (> 18.000) MV EF SLOPE: 84 mm/s (70 - 150) EPSS: 0.3 cm MV E James: 0.84 m/s MV DecT: 389 ms MV A James: 0.77 m/s MV E/A Ratio: 1.10 AR PHT: 801 ms RAP: 5.00 mmHg RVSP: 16.18 mmHg FINDINGS -------- Sinus rhythm. This was a technically good study. The left ventricular size is normal. There is moderate concentric left ventricular hypertrophy. O verall left ventricular systolic function is normal with, an EF between 55 - 60 %. The right ventricle is normal in size. The left atrial size is normal. Normal LA size by volume 22+/-6 ml/m2. The right atrial size is normal. The aortic valve is trileaflet and appears structurally normal. There is mild aortic regurgitation. There is trace mitral regurgitation. Mild tricuspid regurgitation present. There is no evidence of pulmonary hypertension. The right v entricular systolic pressure, as measured by Doppler, is 16.18mmHg. There is no pulmonic regurgitation present. The aortic root size is normal. IVC Not well visulized. There is no pericardial effusion. CONCLUSIONS -------- 1. Sinus rhythm. 2. This was a technically good study. 3. The left ventricular size is normal. 4. There is moderate concentric left ventricular hypertrophy. 5. Overall left ventricular systolic function is normal with, an EF between 55 - 60 %. 6. The right ventricle is normal in size. 7. The left atrial size is normal. 8. Normal LA size by volume 22+/-6 ml/m2. 9. The right atrial size is normal. 10. The aortic valve is trileaflet and appears structurally normal. 11. There is mild aortic regurgitation. 12. There is trace mitral regurgitation. 13. Mild tricuspid regurgitation present. 14. There is no evidence of pulmonary hypertension. 15. The right ventricular systolic pressure, as measured by Doppler, is 16.18mmHg. 16. There is no pulmonic regurgitation present. 17. The aortic root size is normal. 18. IVC Not well visulized. 19. There is no pericardial effusion. BLEACHER PULP: Meliza Hernandez RDCS
--- NOTE | 2019-03-26 19:42 | P.CNNES ---
History of Present Illness Consult date: 03/26/19 Reason for Consult: TIA symptoms, chest pain History of Present Illness: Patient is a 63-year-old male who started having chest pain, dizziness and some neurological symptoms at 7 AM when he was at work. Patient states that he woke up at 5 AM this morning and was normal. He went to work. 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 He took the trash can out, and then felt tired, sat down and took a break. While sitting, at 7 AM, he started noticing chest pain, pointing to the sternal region, dizziness nausea and that his speech became slurred. He was s weating. There was no facial droop, no focal weakness. His both hands felt tingling. Patient employer took him home. Patient called his who noticed that patient was having slurred speech. She couldn't understand that he was talking sometimes and he was talking slowly. She called 911 and patient was brought to the ER and he arrived at 8:52 AM. Patient underwent computed tomography scan of the head, which revealed no acute intracranial process. Mild paranasal sinus disease. Chest x-ray showed left basilar atelectasis favored over infiltrate. EKG showed normal sinus rhythm. Inferior infarct, age undetermined. Patient had a 2-D echo, which showed sinus rhythm. Left- ventricular size is normal. EF is 55-60%. Left atrial size is normal. There is mild aortic regurgitation. Patient's blood tests were reviewed. Glucose is 364. Liver panel normal, UA negative. Patient states his neurological symptoms have completely resolved, except for still persistence of chest pain in the sternal region. Patient was not a candidate for TPA, due to low NIH stroke scale, and resolution of symptoms in the ER. Patient has history of diabetes for 4-5 years, which is now getting better controlled. His initial A1c was 12 at the time of diagnosis, but has come down to 8.1 on 11/13/2018. Patient's last cholesterol is 171, LDL 95, triglycerides 403. Patient does not take any antiplatelet medication, or statins. He denies hypertension. Denies tobacco use. Review of Systems As per HPI. Denies any headache, double vision, loss of vision. Denies focal weakness. Had some numbness of the hands. Past Medical History Past Medical History: Diabetes Mellitus, GERD/Reflux, Hyperlipidemia, Osteoarthritis (OA), Thyroid Disorder Additional Past Medical History / Comment(s): NIDDM type II, hypothyroid, past GERD-not an issue since Remi, arthritis L knee. History of Any Multi-Drug Resistant Organisms: None Reported Past Surgical History: Joint Replacement, Orthopedic Surgery, Tonsillectomy Additional Past Surgical History / Comment(s): L KNEE ARTHROSCOPY, TOTAL LT KNEE; IVANA SHOULDER SURG (LEFT SIDE DONE 3 TIMES), EGD 09/06/15, LAPROSCOPIC REMI FUNDOPLASTY, COLONOSCOPY Past Anesthesia/Blood Transfusion Reactions: Motion Sickness, Postoperative Nausea & Vomiting (PONV) Smoking Status: Never smoker - Past Family History Mother Family Medical History: Cancer Father History Unknown: Yes Family Medical History: No Reported History Additional Family Medical History / Comment(s): Father in a MVA when pt was 5 yrs old. Brother(s) Family Medical History: No Reported History Sister(s) Family Medical History: No Reported History Medications and Allergies Home Medications Medication Instructions Recorded Confirmed Type Levothyroxine Sodium [Synthroid] 50 mcg PO DAILY 09/03/15 03/26/19 History Simvastatin [Zocor] 20 mg PO DAILY 09/03/15 03/26/19 History Citalopram Hydrobromide [CeleXA] 20 mg PO DAILY 03/26/19 03/26/19 History glipiZIDE [Glucotrol] 2.5 mg PO DAILY PRN 03/26/19 03/26/19 History sitaGLIPtin PHOSPHATE [Januvia] 100 mg PO DAILY 03/26/19 03/26/19 History Allergies Allergy/AdvReac Type Severity Reaction Status Date / Time Penicillins Allergy Rash/Hives Verified 03/26/19 10:03 Physical Examination - Vital Signs Vital Signs: Vital Signs Temp Pulse Pulse Resp BP Pulse Ox 03/26/19 13:00 98.4 F 60 18 125/95 97 03/26/19 10:58 63 18 118/72 97 03/26/19 09:10 60 03/26/19 09:06 98.0 F 59 L 18 136/80 99 Intake and Output 03/26/19 03/26/19 03/26/19 06:59 14:59 22:59 Other: Weight 95.254 kg On examination patient is a late middle aged male, in no distress. He is alert and awake fully oriented. His speech and language functions are normal. On cranial nerve examination pupils are round and reactive to light, visual echeverria are full, extraocular nerves are intact. Face is symmetric and tongue protrudes to the midline. On muscle strength testing there is no pronator drift and the strength is normal in arms and legs distally and proximally. Reflexes are symmetric, plantars downgoing. No ataxia for [id number] testing, tone and bulk of muscles normal. Results - Laboratory Findings CBC and BMP: 03/26/19 09:15 03/26/19 09:15 Abnormal Lab Findings: Abnormal Labs 03/26/19 03/26/19 03/26/19 09:15 09:15 09:15 Lymphocytes # 0.9 L APTT 21.0 L Carbon Dioxide 19 L Glucose 364 H AST 16 L Urine Glucose (UA) Urine Ketones 03/26/19 09:15 Lymphocytes # APTT Carbon Dioxide Glucose AST Urine Glucose (UA) 4+ H Urine Ketones 1+ H Assessment and Plan Assessment: * Possible TIA. Symptoms completely resolved. * Diabetes, not very well controlled. Last A1c 8.1. * Chest pain, cardiology on board. Plan: * Agree with starting aspirin 325 mg daily. * We will check fasting a.m. lipid panel and hemoglobin A1c. * Carotid Doppler to rule out carotid stenosis. * 2-D echo showed no embolic source. * Energy Economist also evaluating the patient for chest pain. * We will follow patient clinically.
[2019-03-26 20:01] LABS: Glucose,Whole Blood 271 mg/dL (75-99)
[2019-03-26] MEDS: INSULIN ASPART (NovoLOG) 100 UNIT/ML VIAL SQ SCH ×2 (20:22→20:29)
[2019-03-26] MEDS: HEPARIN SODIUM,PORCINE 5,000 UNIT/ML 1 ML VIAL SQ SCH ×2 (20:22→23:34)
[2019-03-26] MEDS: SODIUM CHLORIDE 0.9% 1,000 ML IV SCH (20:23)
[2019-03-27 03:38] LABS: Cholesterol 142 mg/dL (<200); HDL Cholesterol 43 mg/dL (40-60); LDL Cholesterol,Calculated 71 mg/dL (0-99); Triglycerides 140 mg/dL (<150)
[2019-03-27 04:17] LABS: Hemoglobin A1C 9.2 % (4.0-6.0)
[2019-03-27 06:13] LABS: Glucose,Whole Blood 203 mg/dL (75-99)
[2019-03-27] MEDS: INSULIN ASPART (NovoLOG) 100 UNIT/ML VIAL SQ SCH ×4 (06:47→20:36)
[2019-03-27] MEDS: LEVOTHYROXINE 50 MCG TAB PO SCH (06:47)
[2019-03-27] MEDS: CITALOPRAM HYDROBROMIDE 20 MG TAB PO SCH (08:49)
[2019-03-27] MEDS: HEPARIN SODIUM,PORCINE 5,000 UNIT/ML 1 ML VIAL SQ SCH ×3 (08:49→22:58)
[2019-03-27] MEDS: ATORVASTATIN 10 MG TAB PO SCH (08:49)
[2019-03-27] MEDS: ASPIRIN 325 MG TAB PO SCH (08:49)
[2019-03-27] MEDS ORDERED: LINAGLIPTIN 5 MG TABLET PO SCH (09:00)
[2019-03-27] MEDS ORDERED: PANTOPRAZOLE 40 MG/10 ML VIAL IV SCH (09:00)
--- NOTE | 2019-03-27 09:23 | P.CRDCN ---
History of Present Illness Consult date: 03/27/19 Requesting physician: Hansa Hoffmann Consult reason: chest pain Chief complaint: Chest pain, slurring speech History of present illness: This is a pleasant 63-year-old gentleman with history of diabetes, hyperlipidemia on Zocor at home, hypothyroidism, he is a non-smoker, no family history of premature coronary artery disease, no history of hypertension and rarely drinks alcohol. 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 Apparently he was at work yesterday morning, developed chest discomfort which she described as an ache in the center of his chest, he became quite nauseated, and extremely diaphoretic. He spoke with his potassium drove him home, on arrival home patient symptoms seemed to worsen, he called his who works in [employer], was trying to tell her about his symptoms when he also noticed that he had slurring of speech and difficulty getting his words out did undergo a stress test in the past, in 2016, the final impression of that stress test suggested some distal ischemic change in the inferior wall, following that according to the , the patient to follow-up with a winder operator at [facility], who felt that the stress test only showed minor changes and recommended that he follow-up in 6 months. Chest x-ray showed left basilar atelectasis over infiltrate. CAT scan of the brain did not reveal any acute intracranial process. Incidentally noted foci of the cavernous sinus are likely from venipuncture. Mild paranasal sinus disease. EKG shows normal sinus rhythm with inferior Q waves. Echocardiogram with Doppler study was performed which revealed an ejection fraction of 55-60%. Carotid Doppler study was performed this morning, results are yet pending. Blood pressure on arrival here 136/80 with a heart rate in the 60s, 99% on room air. White blood cell count 8.2, hemoglobin 14.2, platelet count 165. Sodium 137, potassium 4.0, BUN 19 and creatinine 0.7. Blood glucose on arrival 364. Hemoglobin A1c 9.2. Troponins n egative 3. Cholesterol 142, triglycerides 140, LDL 71 HDL 43. At the time of my examination this morning, his symptoms have completely resolved, his speech is normal, denies any chest discomfort at present. Past Medical History Past Medical History: Diabetes Mellitus, GERD/Reflux, Hyperlipidemia, Osteoarthritis (OA), Thyroid Disorder Additional Past Medical History / Comment(s): NIDDM type II, hypothyroid, past GERD-not an issue since Gretchen, arthritis L knee. History of Any Multi-Drug Resistant Organisms: None Reported Past Surgical History: Joint Replacement, Orthopedic Surgery, Tonsillectomy Additional Past Surgical History / Comment(s): L KNEE ARTHROSCOPY, TOTAL LT KNEE; IVANA SHOULDER SURG (LEFT SIDE DONE 3 TIMES), EGD 09/06/15, LAPROSCOPIC N ISSEN FUNDOPLASTY, COLONOSCOPY Past Anesthesia/Blood Transfusion Reactions: Motion Sickness, Postoperative Nausea & Vomiting (PONV) Smoking Status: Never smoker - Past Family History Mother Family Medical History: Cancer Father History Unknown: Yes Family Medical History: No Reported History Additional Family Medical History / Comment(s): Father in a MVA when pt was 5 yrs old. Brother(s) Family Medical History: No Reported History Sister(s) Family Medical History: No Reported History Medications and Allergies Home Medications Medication Instructions Recorded Confirmed Type Levothyroxine Sodium [Synthroid] 50 mcg PO DAILY 09/03/15 03/26/19 History Simvastatin [Zocor] 20 mg PO DAILY 09/03/15 03/26/19 History Citalopram Hydrobromide [CeleXA] 20 mg PO DAILY 03/26/19 03/26/19 History glipiZIDE [Glucotrol] 2.5 mg PO DAILY PRN 03/26/19 03/26/19 History sitaGLIPtin PHOSPHATE [Januvia] 100 mg PO DAILY 03/26/19 03/26/19 History Allergies Allergy/AdvReac Type Severity Reaction Status Date / Time Penicillins Allergy Rash/Hives Verified 03/26/19 10:03 Physical Exam Vitals: Vital Signs Temp Pulse Pulse Resp BP BP Pulse Ox 03/27/19 05:20 98.3 F 63 17 104/60 96 03/26/19 23:32 76 15 117/64 93 L 03/26/19 19:52 98.3 F 64 16 131/67 95 03/26/19 19:00 98.6 F 67 18 142/79 99 03/26/19 13:00 98.4 F 60 18 125/95 97 03/26/19 10:58 63 18 118/72 97 Intake and Output 06/12/19 06/13/19 06/13/19 22:59 06:59 14:59 Other: Voiding Method Toilet Toilet # Voids 2 Weight 96.3 kg PHYSICAL EXAMINATION: GENERAL: 63-year-old gentleman in no acute distress at the time of my examination HEENT: Head is atraumatic, normocephalic. Pupils equal, round. Sclera anicteric. Conjunctiva are clear. Mucous membranes of the mouth are moist. Neck is supple. There is no elevated jugular venous pressure. No carotid bruit is heard. HEART EXAMINATION: Heart S1, S2 normal. No murmur or gallop heard. CHEST EXAMINATION: Lungs are clear to auscultation and precussion. No chest wall tenderness is noted on palpation or with deep breathing. ABDOMEN: Soft, nontender. Bowel sounds are heard. No organomegaly noted. EXTREMITIES: 2+ peripheral pulses with no evidence of peripheral edema and no calf tenderness noted. NEUROLOGIC patient is awake, alert and oriented 3 . . Results 03/26/19 09:15 03/26/19 09:15 Cardiac Enzymes 03/26/19 03/26/19 03/26/19 Range/Units 09:15 09:15 15:15 AST 16 L (17-59) U/L Troponin I <0.012 <0.012 (0.000-0.034) ng/mL 03/26/19 Range/Units 21:20 AST (17-59) U/L Troponin I <0.012 (0.000-0.034) ng/mL Coagulation 03/26/19 Range/Units 09:15 PT 10.0 (9.0-12.0) sec APTT 21.0 L (22.0-30.0) sec Lipids 03/26/19 Range/Units 09:15 Triglycerides 140 (<150) mg/dL Cholesterol 142 (<200) mg/dL HDL Cholesterol 43 (40-60) mg/dL CBC 03/26/19 Range/Units 09:15 WBC 8.2 (3.8-10.6) k/uL RBC 4.59 (4.30-5.90) m/uL Hgb 14.2 (13.0-17.5) gm/dL Hct 41.4 (39.0-53.0) % Plt Count 165 (150-450) k/uL Comprehensive Metabolic Panel 03/26/19 Range/Units 09:15 Sodium 137 (137-145) mmol/L Potassium 4.0 (3.5-5.1) mmol/L Chloride 106 (98-107) mmol/L Carbon Dioxide 19 L (22-30) mmol/L BUN 19 (9-20) mg/dL Creatinine 0.70 (0.66-1.25) mg/dL Glucose 364 H (74-99) mg/dL Calcium 9.3 (8.4-10.2) mg/dL AST 16 L (17-59) U/L ALT 22 (21-72) U/L Alkaline Phosphatase 60 (38-126) U/L Total Protein 6.5 (6.3-8.2) g/dL Albumin 4.1 (3.5-5.0) g/dL Current Medications Generic Name Dose Route Start Last Admin Trade Name Freq PRN Reason Stop Dose Admin Acetaminophen 650 mg 03/26/19 11:38 Tylenol Tab PO Q6HR PRN Mild Pain or Fever > 100.5 Acetaminophen 650 mg 03/26/19 13:54 Tylenol Tab PO Q4HR PRN Pain Aspirin 325 mg 03/27/19 09:00 03/27/19 08:49 Aspirin PO 325 mg DAILY LEIF Administration Atorvastatin Calcium 10 mg 03/27/19 09:00 03/27/19 08:49 Lipitor PO 10 mg DAILY LEIF Administration Citalopram Hydrobromide 20 mg 03/27/19 09:00 03/27/19 08:49 Celexa PO 20 mg DAILY LEIF Administration Heparin Sodium (Porcine) 5,000 unit 03/26/19 16:00 03/27/19 08:49 Heparin SQ 5,000 unit Q8HR LEIF Administration Hydromorphone HCl 0.5 mg 03/26/19 11:38 Dilaudid IVP Q3HR PRN Moderate Pain Sodium Chloride 1,000 mls @ 20 mls/hr 03/26/19 11:45 03/26/19 20:23 Saline 0.9% IV Not Given .Q24H [facility] Ibuprofen 400 mg 03/26/19 11:38 Motrin PO Q6HR PRN Mild Pain or Fever > 100.5 Insulin Aspart 0 unit 03/26/19 17:30 03/27/19 06:47 Novolog SQ 2 unit ACHS LEIF Administration Protocol Levothyroxine Sodium 50 mcg 03/27/19 06:30 03/27/19 06:47 Synthroid PO 50 mcg DAILY@0630 LEIF Administration Morphine Sulfate 4 mg 03/26/19 11:38 Morphine Sulfate (Inj) IV Q4HR PRN Severe Pain Naloxone HCl 0.2 mg 03/26/19 11:38 Narcan IV Q2M PRN Opioid Reversal Nitroglycerin 0.4 mg 03/26/19 13:54 Nitrostat SUBLINGUAL Q5M PRN Chest Pain Ondansetron HCl 4 mg 03/26/19 11:38 Zofran IVP Q8HR PRN Nausea And Vomiting Pantoprazole Sodium 40 mg 03/27/19 09:00 03/27/19 08:49 Protonix IV 40 mg DAILY LEIF Administration Intake and Output 03/26/19 03/27/19 03/27/19 22:59 06:59 14:59 Other: Voiding Method Toilet Toilet # Voids 2 Weight 96.3 kg 03/26/19 09:15 03/26/19 09:15 EKG Interpretations (text) EKG shows a normal sinus rhythm with inferior Q waves noted. Assessment and Plan Plan: Assessment and plan #1 symptoms of midsternal chest discomfort with associated nausea, shortness of breath, and diaphoresis, suggestive of possible angina. Troponins negative 3. EKG shows normal sinus rhythm with inferior Q waves noted. Patient did have a stress test performed in 2016 which showed distal ischemic change in the inferior wall region. #2 symptoms of slurring of speech and mild aphasia, suggestive of possible TIA, symptoms completely resolved this morning. #3 diabetes, patient has had diabetes for the past 5 years #4 hyperlipidemia, on Zocor at home #5 hypothyroidism Plan Echocardiogram with Doppler study revealed a normal left ventricular systolic function. Patient is currently on an aspirin as well as statin. Patient will need further evaluation to rule out underlying coronary artery disease, he did have a noted positive stress test in 2016, may require cardiac catheterization. Neurology following regarding TIA symptoms, further recommendations to follow. DNP note has been reviewed, I agree with a documented findings and plan of care. Patient was seen and examined.
--- NOTE | 2019-03-27 09:49 | US ---
EXAMINATION TYPE: US carotid duplex BILAT DATE OF EXAM: 03/27/2019 COMPARISON: NONE CLINICAL HISTORY: slurred speech, TIA . EXAM MEASUREMENTS: RIGHT: Peak Systolic Velocity (PSV) cm/sec ----- Right CCA: 74.6 ----- Right ICA: 45.2 ----- Right ECA: 43.2 ICA/CCA ratio: 0.6 RIGHT: End Diastole cm/sec ----- Right CCA: 16.7 ----- Right ICA: 15.3 ----- Right ECA: 8.6 LEFT: Peak Systolic Velocity (PSV) cm/sec ----- Left CCA: 77.2 ----- Left ICA: 53.7 ----- Left ECA: 50.7 ICA/CCA ratio: 0.7 LEFT: End Diastole cm/sec ----- Left CCA: 17.7 ----- Left ICA: 20.8 ----- Left ECA: 10.4 VERTEBRALS (direction of flow): Right Vertebral: Antegrade Left Vertebral: Antegrade Rhythm: Normal Minimal plaque, no significant velocity elevations. Grayscale, color Doppler, spectral Doppler imaging performed of the carotid arteries. Waveform analys is does not show significant stenosis of the internal carotid arteries. IMPRESSION: No hemodynamic significant stenosis of the proximal internal carotid arteries by Doppler criteria, an indirect measurement of carotid stenosis
[2019-03-27 11:34] VITALS: BMI 32.3
[2019-03-27 11:57] LABS: Glucose,Whole Blood 172 mg/dL (75-99)
--- NOTE | 2019-03-27 12:26 | P.PN ---
Subjective Progress Note Date: 03/27/19 Patient denies any new neurological symptoms. Feels fine neurologically. Objective - Vital Signs Vital signs: Vital Signs Temp 98.6 F 03/27/19 08:00 Pulse 60 03/27/19 12:00 Resp 16 03/27/19 12:00 BP 123/74 03/27/19 08:00 Pulse Ox 96 03/27/19 08:00 Intake & Output 03/26/19 03/27/19 03/27/19 18:59 06:59 18:59 Intake Total 40 Output Total 600 Balance -560 Weight 95.254 kg 96.3 kg 96.3 kg Intake: IV 40 Invasive Line 1 40 Output: Urine 600 Other: Voiding Method Toilet Toilet # Voids 2 - Exam Mental status, speech and language functions normal. Cranial nerves normal. Muscle strength normal. - Labs CBC & Chem 7: 03/26/19 09:15 03/26/19 09:15 Labs: Abnormal Lab Results - Last 24 Hours (Table) 03/26/19 03/26/19 03/27/19 Range/Units 13:00 19:59 06:12 POC Glucose (mg/dL) 271 H 203 H (75-99) mg/dL Hemoglobin A1c 9.2 H (4.0-6.0) % 03/27/19 Range/Units 11:55 POC Glucose (mg/dL) 172 H (75-99) mg/dL Hemoglobin A1c (4.0-6.0) % Assessment and Plan Assessment: * Possible TIA. Symptoms completely resolved. * Diabetes, not very well controlled. Current hemoglobin A1c 9.2. * Chest pain, cardiology on board. Plan: * Continue aspirin 325 mg daily. * Lipid panel showed cholesterol 142, LDL 71, HDL 43, well controlled. Continue Lipitor 10 mg daily. * Hemoglobin A1c 9.2. Need to optimize diabetes to target hemoglobin A1c <7.0. * Carotid Doppler showed no significant stenosis. Antegrade flow in both vertebral arteries. * 2-D echo showed no embolic source. * Cco & President also evaluating the patient for chest pain. Patient may need stress test versus cardiac catheterization. * Neurologically, patient is stable.
[2019-03-27] MEDS ORDERED: ALPRAZolam 0.5 MG TAB PO PRN (12:29)
[2019-03-27] MEDS ORDERED: ATORVASTATIN 80 MG TAB PO STA (12:29)
[2019-03-27] MEDS ORDERED: ASPIRIN 325 MG TAB PO STA (12:29)
[2019-03-27] MEDS ORDERED: NITROGLYCERIN SL TABS 0.4 MG TAB SUBLINGUAL PRN (12:29)
[2019-03-27] MEDS ORDERED: SODIUM CHLORIDE 0.9% 1,000 ML in EMPTY BAG 1 BAG IV ONE (12:29)
[2019-03-27] MEDS: SODIUM CHLORIDE 0.9% 1,000 ML IV SCH (14:12)
[2019-03-27] MEDS: ALPRAZolam 0.25 MG TAB PO PRN (16:41)
[2019-03-27 17:10] LABS: Glucose,Whole Blood 225 mg/dL (75-99)
--- NOTE | 2019-03-27 17:45 | P.PN ---
Subjective Progress Note Date: 03/27/19 Patient seen and examined at bedside, appears anxious prior to having his scheduled heart cath in the morning, denies any chest pain or shortness of breath. Objective - Vital Signs Vital signs: Vital Signs Temp 98.6 F 03/27/19 15:59 Pulse 70 03/27/19 16:00 Resp 16 03/27/19 16:00 BP 138/67 03/27/19 15:59 Pulse Ox 95 03/27/19 15:59 Intake & Output 03/26/19 03/27/19 03/27/19 18:59 06:59 18:59 Intake Total 410 Output Total 600 Balance -190 Weight 95.254 kg 96.3 kg 96.3 kg Intake: IV 50 Invasive Line 1 50 Oral 360 Output: Urine 600 Other: Voiding Method Toilet Toilet # Voids 2 3 - Exam Constitutional: No acute distress, conversant, pleasant Eyes: Anicteric sclerae, moist conjunctiva, no lid-lag, PERRLA ENMT: NC/AT,Oropharynx clear, no erythema, exudates Neck:Supple, FROM, no masses, or JVD, No carotid bruits; No thyromegaly Lungs: Clear to auscultation, Clear to percussion, Normal respiratory effort, no accessory muscle use Cardiovascular: Heart regular in rate and rhythm, No murmurs, gallops, or rubs no peripheral edema Abdominal: Soft Nontender, nom distended, no guarding, no rebound or rigidity, Normoactive bowel sounds No hepatomegaly, No splenomegaly, No palpable mass No abdominal wall hernia noted Skin: Normal temperature, tone, texture, turgor, No induration No subcutaneous nodules, No rash, lesions, No ulcers Extremities:No digital cyanosis No clubbing, Pedal pulses intact and symmetrical Radial pulses intact and symmetrical Normal gait and station, No calf tenderness Psychiatric: Alert and oriented to person, place and time, Appropriate affect Intact judgement Neuro: Muscles Strength 5/5 in all 4 extremities, Sensation to light touch grossly present throughout, Cranial nerves II-XII grossly intact. No focal sensory deficits - Labs CBC & Chem 7: 03/26/19 09:15 03/26/19 09:15 Labs: Abnormal Lab Results - Last 24 Hours (Table) 03/26/19 03/26/19 03/27/19 Range/Units 13:00 19:59 06:12 POC Glucose (mg/dL) 271 H 203 H (75-99) mg/dL Hemoglobin A1c 9.2 H (4.0-6.0) % 03/27/19 03/27/19 Range/Units 11:55 16:39 POC Glucose (mg/dL) 172 H 225 H (75-99) mg/dL Hemoglobin A1c (4.0-6.0) % Assessment and Plan (1) Chest pain Narrative/Plan: * Troponins negative 3, EKG shows sinus rhythm with inferior Q waves * A previous stress test in 2016 showed distal ischemic changes in the inferior wall * Appreciate cardiology recommendations plan to have a heart cath tomorrow Current Visit: Yes Status: Acute Code(s): R07.9 - CHEST PAIN, UNSPECIFIED SNOMED Code(s): 86357848 (2) TIA (transient ischemic attack) Narrative/Plan: * Continue antiplatelet therapy with aspirin * Echocardiogram revealing no embolic source EF of 55-60%, Carotid Dopplers also negative for any clinically significant carotid disease * the patient's neurological symptoms have resolved no further recurrence * Appreciate neurology recommendations Current Visit: Yes Status: Acute Code(s): G45.9 - TRANSIENT CEREBRAL ISCHEMIC ATTACK, UNSPECIFIED SNOMED Code(s): 115019039 (3) Type 2 diabetes mellitus with hyperglycemia Narrative/Plan: * A1c elevated at 9.2 * Received a total of 8 units of sliding scale coverage * Continue correctional scale insulin Current Visit: Yes Status: Acute Code(s): E11.65 - TYPE 2 DIABETES MELLITUS WITH HYPERGLYCEMIA SNOMED Code(s): 104465572766291 (4) GERD (gastroesophageal reflux disease) Narrative/Plan: * Continue PPI therapy Current Visit: No Status: Acute Code(s): K21.9 - GASTRO-ESOPHAGEAL REFLUX DISEASE WITHOUT ESOPHAGITIS SNOMED Code(s): 663556094 (5) Hyperlipidemia Narrative/Plan: * LDL is at goal continue current statin regimen Current Visit: Yes Status: Acute Code(s): E78.5 - HYPERLIPIDEMIA, UNSPECIFIED SNOMED Code(s): 19591168 Plan: Disposition * Anticipate discharge in 1-2 days, patient to have heart catheterization tomorrow
[2019-03-27 20:34] LABS: Glucose,Whole Blood 223 mg/dL (75-99)
[2019-03-28 04:30] VITALS: RESP 16
[2019-03-28 06:05] LABS: Glucose,Whole Blood 235 mg/dL (75-99)
[2019-03-28] MEDS: INSULIN ASPART (NovoLOG) 100 UNIT/ML VIAL SQ SCH ×3 (06:10→18:34)
[2019-03-28] MEDS: ASPIRIN 325 MG TAB PO SCH (06:11)
[2019-03-28] MEDS: ATORVASTATIN 10 MG TAB PO SCH (06:11)
[2019-03-28] MEDS: HEPARIN SODIUM,PORCINE 5,000 UNIT/ML 1 ML VIAL SQ SCH ×2 (06:11→18:06)
[2019-03-28] MEDS: LEVOTHYROXINE 50 MCG TAB PO SCH (06:11)
[2019-03-28] MEDS: CITALOPRAM HYDROBROMIDE 20 MG TAB PO SCH (06:11)
[2019-03-28] MEDS: ALPRAZolam 0.25 MG TAB PO PRN (07:41)
[2019-03-28] MEDS ORDERED: PANTOPRAZOLE 40 MG TABLET PO SCH (09:00)
[2019-03-28 09:14] VITALS: TEMP 98.3
[2019-03-28] MEDS ORDERED: VERAPAMIL 2.5 MG/ML 2 ML AMP ONE (10:21)
[2019-03-28] MEDS ORDERED: LIDOCAINE 1% INJ 10MG/ML (20 ML MDV) ONE (10:21)
[2019-03-28] MEDS ORDERED: fentaNYL (PF) 50 MCG/ML 2 ML AMP ONE (10:21)
[2019-03-28] MEDS ORDERED: HEPARIN SODIUM 1,000 UN/ML (10ML VL) ONE (10:29)
[2019-03-28] MEDS ORDERED: SODIUM CHLORIDE 0.9% 1,000 ML IV ONE (10:33)
[2019-03-28] MEDS: MIDAZOLAM (PF) 2 MG/2 ML VIAL IVP ONE ×2 (10:46→10:55)
[2019-03-28] MEDS ORDERED: fentaNYL (PF) 50 MCG/ML 2 ML AMP IVP ONE (10:46)
[2019-03-28] MEDS ORDERED: LIDOCAINE 1% INJ 10MG/ML (20 ML MDV) SQ ONE (10:47)
[2019-03-28] MEDS ORDERED: VERAPAMIL SYRINGE (5 MG/10 ML) INTRAARTER ONE (10:49)
[2019-03-28] MEDS ORDERED: HEPARIN SODIUM 1,000 UN/ML (10ML VL) IV ONE (10:51)
[2019-03-28] MEDS ORDERED: RX INFO: IV CONTRAST WAS GIVEN 1 EACH MISC MISCELLANE PRN (11:02)
--- NOTE | 2019-03-28 11:09 | P.CARDCATH ---
Date of Procedure: 03/28/19 Preoperative Diagnosis: Recurrent chest pains with a history of positive stress test Postoperative Diagnosis: Normal coronary arteries Procedure(s) Performed: Left heart catheterization without left ventriculography Description of Procedure: HISTORY: This is a 62-year-old gentleman who was admitted to the hospital with symptoms of chest pain suggestive of unstable angina. His cardiac enzymes are negative. Patient had a previous stress test that was suggestive of possible ischemia in the inferior wall. Patient is advised to have a cardiac catheterization for definitive diagnosis or stress test. He had preferred to have cardiac catheterization CONSENT:I have discussed the risks, benefits and alternative therapies for the above-mentioned procedure and for both sedation/analgesia as well as necessary blood product administration, if indicated, as they pertain to this patient. The patient has indicated understanding and acceptance of the risks and procedures discussed. PROCEDURE: Patient was brought to the lab in a fasting state. Patient was given some IV sedation. The right wrist is infiltrated with lidocaine and right radial artery was entered using Seldinger technique. A 6-Ethiopian catheter was left in place and selective coronary arteriography was performed. Patient tolerated the procedure well. TR band was applied for hemostasis. No immediate complications were noted and patient was transferred to [facility] in a stable condition Conscious Sedation: Versed 1mg Fentanyl 50 g Duration 15minutes HEMODYNAMICS: The aortic pressure is 120/70. The left ventricular end-diastolic pressure was 6. There was no gradient across the aortic valve SELECTIVE CORONARY ARTERIOGRAPHY: LEFT MAIN: Normal length and patent and free of any occlusive disease THE LEFT ANTERIOR DESCENDING CORONARY ARTERY:. This is a fair caliber vessel giving rise good-sized first diagonal branch the LAD and its branches are free of any significant occlusive disease THE LEFT CIRCUMFLEX AND IS CORONARY ARTERY:. This is a dominant vessel giving rise to 80 and also good-sized OM branch. The circumflex coronary artery and branches are free of occlusive disease THE RIGHT CORONARY ARTERY:. This is small nondominant vessel free of occlusive disease LEFT VENTRICULOGRAPHY:. Not performed FINAL IMPRESSION: Normal Coronary arteries. Normal end-diastolic pressure PLAN: Medical therapy and this factor modification PROGNOSIS:Good
[2019-03-28] MEDS ORDERED: SODIUM CHLORIDE 0.9% 1,000 ML IV SCH (11:15)
[2019-03-28 11:44] LABS: Glucose,Whole Blood 171 mg/dL (75-99)
[2019-03-28] MEDS: SODIUM CHLORIDE 0.9% 1,000 ML IV SCH (12:15)
[2019-03-28 13:24] VITALS: PULSE 57
[2019-03-28 15:10] VITALS: BP 108/58
[2019-03-28 16:27] LABS: Glucose,Whole Blood 179 mg/dL (75-99)
--- NOTE | 2019-03-28 17:59 | ECHOF ---
Referral Reason: MEASUREMENTS -------- HEIGHT: 172.7 cm WEIGHT: 96.2 kg BP: FINDINGS -------- Sinus rhythm. Limited bubble study to rule out shunt. Contrast study was performed with 1 iv injection of 8 ccs of agitated normal saline at rest. Interatrial and interventricular septum intact. CONCLUSIONS -------- 1. Sinus rhythm. 2. Limited bubble study to rule out shunt. 3. Contrast study was performed with 1 iv injection of 8 ccs of agitated normal saline at rest. 4. Interatrial and interventricular septum intact. HOEING [employer]OW BOSS: Meliza Hernandez RDCS
--- NOTE | 2019-03-28 18:09 | P.PN ---
Subjective Progress Note Date: 03/28/19 Patient denies any new neurological symptoms. Feels fine neurologically. Patient had cardiac catheterization, which according to the patient was normal. Objective - Vital Signs Vital signs: Vital Signs Temp 98.3 F 03/28/19 08:00 Pulse 57 L 03/28/19 15:11 Resp 16 03/28/19 15:11 BP 108/58 03/28/19 15:05 Pulse Ox 95 03/28/19 11:20 Intake & Output 03/27/19 03/28/19 03/28/19 18:59 06:59 18:59 Intake Total 650 360 910 Output Total 600 Balance 50 360 910 Weight 96.3 kg 96.6 kg Intake: IV 50 50 Invasive Line 1 50 50 Oral 600 360 860 Output: Urine 600 Other: Voiding Method Toilet Toilet Toilet # Voids 3 3 2 - Exam Mental status, speech and language functions normal. Cranial nerves normal. Muscle strength normal. - Labs CBC & Chem 7: 03/26/19 09:15 03/26/19 09:15 Labs: Abnormal Lab Results - Last 24 Hours (Table) 03/27/19 03/28/19 03/28/19 Range/Units 20:26 06:04 11:39 POC Glucose (mg/dL) 223 H 235 H 171 H (75-99) mg/dL 03/28/19 Range/Units 16:26 POC Glucose (mg/dL) 179 H (75-99) mg/dL Assessment and Plan Assessment: * Possible TIA. Symptoms completely resolved. * Diabetes, not very well controlled. Current hemoglobin A1c 9.2. * Chest pain, cardiology on board. Per patient cardiac catheterization negative. Plan: * Continue aspirin 325 mg daily. * Lipid panel showed cholesterol 142, LDL 71, HDL 43, well controlled. Continue Lipitor 10 mg daily. * Hemoglobin A1c 9.2. Need to optimize diabetes to target hemoglobin A1c <7.0. * Carotid Doppler showed no significant stenosis. Antegrade flow in both vertebral arteries. * 2-D echo showed no embolic source. * Neurologically, patient is clear for discharge.
--- NOTE | 2019-03-29 07:13 | P.DS ---
Providers Date of admission: 03/27/19 15:16 Expected date of discharge: 03/28/19 Attending physician: Hansa Hoffmann DO Consults: 03/26/19 11:38 Consult Physician Stat Consulting Provider: Jake Cedeño Consult Reason/Comments: TIA symptoms, Chest pain Do you want consulting provider notified?: Yes Consult Physician Stat Consulting Provider: Celestino Nash Consult Reason/Comments: Chest pain Do you want consulting provider notified?: Yes Primary care physician: Eli Livingston - Matteo Diagnosis(es) (1) Chest pain Current Visit: Yes Status: Acute (2) TIA (transient ischemic attack) Current Visit: Yes Status: Acute (3) Type 2 diabetes mellitus with hyperglycemia Current Visit: Yes Status: Acute (4) GERD (gastroesophageal reflux disease) Current Visit: No Status: Acute (5) Hyperlipidemia Current Visit: Yes Status: Acute Hospital Course: The patient is a 63-year-old male that presented to the ER was admitted for concern for TIA after presenting with slurred speech and chest pain with need to rule out ACS. Workup with CT of the head, carotid Dopplers and echocardiogram was negative. The patient's troponins remained negative, EKG showed sinus rhythm with inferior Q waves and the patient had had a previously abnormal Lexiscan stress test that suggested some distal ischemic changes in the inferior wall. The patient was seen by cardiology and recommended to undergo left heart catheterization that was performed by Dr. Berrios which showed normal coronaries and no suggestion of any coronary artery disease. The patient tolerated the procedure well and was subsequently discharged home in stable condition and instructed to follow-up with his PCP. This discharge process took approximately 35 minutes Focused exam Cardiovascular: Regular rate and rhythm, no murmurs rubs or gallops, PMI nondisplaced no JVD Patient Condition at Discharge: Stable Plan - Discharge Summary Discharge Rx Participant: No New Discharge Prescriptions: Continue Simvastatin [Zocor] 20 mg PO DAILY Levothyroxine Sodium [Synthroid] 50 mcg PO DAILY glipiZIDE [Glucotrol] 2.5 mg PO DAILY PRN PRN Reason: BLOOD SUGAR >160 Citalopram Hydrobromide [CeleXA] 20 mg PO DAILY sitaGLIPtin PHOSPHATE [Januvia] 100 mg PO DAILY Discharge Medication List Levothyroxine Sodium [Synthroid] 50 mcg PO DAILY 09/03/15 [History] Simvastatin [Zocor] 20 mg PO DAILY 09/03/15 [History] Citalopram Hydrobromide [CeleXA] 20 mg PO DAILY 03/26/19 [History] glipiZIDE [Glucotrol] 2.5 mg PO DAILY PRN 03/26/19 [History] sitaGLIPtin PHOSPHATE [Januvia] 100 mg PO DAILY 03/26/19 [History] Follow up Appointment(s)/Referral(s): Eli Livingston MD [Primary Care Provider] - 1-2 days
== END 2019-03-28 19:28 | disposition home or self-care (01) | DRG 287 ==
LOC: EC 08:52 → 3SCARD 11:27 → OBSVTOIN 03-27 15:16
PROVIDERS: ADMIT Internal Medicine; ATTEND Internal Medicine
PROC: 4A023N7 Measurement of Cardiac Sampling and Pressure, Left Heart, Percutaneous Approach (ICD-10-PCS; principal; 2019-03-27)
PROC: B2111ZZ Fluoroscopy of Multiple Coronary Arteries using Low Osmolar Contrast (ICD-10-PCS; 2019-03-27)
DX: R07.9 Chest pain, unspecified (principal); G45.9 Transient cerebral ischemic attack, unspecified; J98.11 Atelectasis; E11.65 Type 2 diabetes mellitus with hyperglycemia; E03.9 Hypothyroidism, unspecified; E78.5 Hyperlipidemia, unspecified; K21.9 Gastro-esophageal reflux disease without esophagitis; Z79.84 Long term (current) use of oral hypoglycemic drugs; Z79.890 Hormone replacement therapy; Z79.899 Other long term (current) drug therapy; Z88.0 Allergy status to penicillin
CPT/HCPCS: 36415; 70450; 71046; 80053; 80061; 81003; 82150; 83036; 83690; 83735; 83880; 84484; 85025; 85610; 85730; 93005; 93306; 93308; 93458; 93880; 96360; 99285

== ENCOUNTER → 2019-04-10 | Outpatient (CLI) | payer OTHER ==
--- NOTE | 2019-04-10 18:29 | PN ---
PROGRESS NOTE DATE OF SERVICE: 04/10/2019 This patient is a 63-year-old gentleman who [facility] of obstructive sleep apnea-hypopnea syndrome. Recently the patient had a home sleep apnea test which showed severe obstructive sleep apnea with apnea-hypopnea index 32.1 and oxygen desaturation to 70%. The patient was started on treatment with AutoPAP, and today is his first visit after he started to use the equipment. I discussed results of the sleep study with the patient in detail. He is able to use his CPAP equipment every night without significant problems related to the pressure, but his mask has been changed to a full-face mask, and with this mask he sleeps well. I checked his CPAP unit. Range of pressure is 10-14, average pressure 13.6. The patient used the equipment / nights, and nights for more than 4 hours, with average usage 6.5 hours per night, which is acceptable borderline compliance. Leak is 17 L/minute, which is acceptable for the full-face mask. Apnea-hypopnea index is 2.5, which is normal range. [place] Sleepiness Scale today is 11. MEDICATIONS: 1. Baby aspirin. 2. Januvia. 3. Zocor. PHYSICAL EXAMINATION: GENERAL: A pleasant patient in no distress. VITAL SIGNS: BP 119/70, HR 85, RR 16, weight 216.8, temperature 98.6, oxygen saturation at room air 93%. HEENT: PERRLA, EOMI. Evaluation of oropharynx showed tongue protrudes midline. Low position of soft palate. Mallampati IV. NECK: Supple. No JVD. Thyroid is not palpable. LUNGS: Clear to percussion and to auscultation. Good air exchange. No wheezing or rhonchi. HEART: S1, S2 regular. No murmurs, gallops or rubs. ABDOMEN: Obese. EXTREMITIES: No clubbing or cyanosis. ANIMAL NURSE: Awake, alert, and oriented X3. Cranial nerves 2 to 7 intact. There is no fasciculation or atrophy. noted. No focal deficits observed. IMPRESSION: 1. Severe obstructive sleep apnea-hypopnea syndrome; apnea-hypopnea index 32.1 with oxygen desaturation to 70%, under control with CPAP with average pressure 13.6 cm of water. Patient has demonstrated good compliance with treatment, benefitting from treatment. 2. Hypothyroidism. 3. Hyperlipidemia. 4. Diabetes mellitus. 5. History of anxiety. 6. Status post total left knee replacement. 7. Status post tonsillectomy. 8. Status post surgery for hiatal hernia. PLAN: 1. Patient will continue to use CPAP equipment every night for the whole night. 2. We will maintain all necessary prescriptions for CPAP supplies. 3. Losing weight. 4. Sleep hygiene with regular time in bed for at least 8 hours. 5. No driving if feeling any sleepiness. 6. Follow-up visit in about one year, or earlier if patient has any problems. Thank you very much for allowing me to participate the management of your patient. Sincerely, Charles Cross MD, PhD, FAASM Diplomat of [employer] [facility] [employer] VICTOR MANUEL / DALIA: [id number] /
== END ==
LOC: SLEEP 15:00
PROVIDERS: ATTEND Internal Medicine
DX: G47.33 Obstructive sleep apnea (adult) (pediatric) (principal); E03.9 Hypothyroidism, unspecified; E78.5 Hyperlipidemia, unspecified; E11.9 Type 2 diabetes mellitus without complications; F41.9 Anxiety disorder, unspecified; Z96.652 Presence of left artificial knee joint; Z90.89 Acquired absence of other organs; Z98.890 Other specified postprocedural states; Z99.89 Dependence on other enabling machines and devices; Z79.899 Other long term (current) drug therapy; Z79.82 Long term (current) use of aspirin

== ENCOUNTER 2019-11-06 18:27 | Emergency (ER) | payer OTHER ==
[2019-11-06 18:55] VITALS: BP 134/75; PULSE 80; RESP 19; TEMP 98.5
--- NOTE | 2019-11-06 19:18 | ED ---
Fall HPI - General Chief Complaint: Fall Stated Complaint: [facility]-Fall Time Seen by Provider: 11/06/19 19:03 Source: patient Mode of arrival: ambulatory - History of Present Illness Initial Comments: Patient is a 64-year-old male presenting to emergency Department with complaints of left-sided rib pain after he fell this morning. Patient is wearing a walking boot on his left lower extremity and states he slipped on ice with this boot on and fell into some trash cans hitting the left side of his ribs. Patient denies hitting his head, LOC. He denies being on blood thinners. He denies any other injuries from this fall. His only complaint is his left hip pain. He states when he coughs or moves around or takes in a deep breath he has increased pain. She denies any persistent chest pain, shortness of breath. He has no other complaints at this time. Upon arrival to ER, vital signs are stable. - Related Data Home Medications Medication Instructions Recorded Confirmed Levothyroxine Sodium [Synthroid] 50 mcg PO DAILY 09/03/15 03/26/19 Simvastatin [Zocor] 20 mg PO DAILY 09/03/15 03/26/19 Citalopram Hydrobromide [CeleXA] 20 mg PO DAILY 03/26/19 03/26/19 glipiZIDE [Glucotrol] 2.5 mg PO DAILY PRN 03/26/19 03/26/19 sitaGLIPtin PHOSPHATE [Januvia] 100 mg PO DAILY 03/26/19 03/26/19 Previous Rx's Medication Instructions Recorded Aspirin [Adult Low Dose Aspirin EC] 81 mg PO DAILY #30 tablet. 03/28/19 Allergies Allergy/AdvReac Type Severity Reaction Status Date / Time Penicillins Allergy Rash/Hives Verified 03/26/19 10:03 Review of Systems ROS Statement: Those systems with pertinent positive or pertinent negative responses have been documented in the HPI. ROS Other: All systems not noted in ROS Statement are negative. Past Medical History Past Medical History: Diabetes Mellitus, GERD/Reflux, Hyperlipidemia, Osteoarthritis (OA), Thyroid Disorder Additional Past Medical History / Comment(s): NIDDM type II, hypothyroid, past GERD-not an issue since Remi, arthritis L knee. History of Any Multi-Drug Resistant Organisms: None Reported Past Surgical History: Joint Replacement, Orthopedic Surgery, Tonsillectomy Additional Past Surgical History / Comment(s): L KNEE ARTHROSCOPY, TOTAL LT KNEE; IVANA SHOULDER SURG (LEFT SIDE DONE 3 TIMES), EGD 09/06/15, LAPROSCOPIC REMI FUNDOPLASTY, COLONOSCOPY Past Anesthesia/Blood Transfusion Reactions: Motion Sickness, Postoperative Nausea & Vomiting (PONV) Past Psychological History: No Psychological Hx Reported, Depression Smoking Status: Never smoker Past Alcohol Use History: None Reported Past Drug Use History: None Reported - Past Family History Mother Family Medical History: Cancer Father History Unknown: Yes Family Medical History: No Reported History Additional Family Medical History / Comment(s): Father in a MVA when pt was 5 yrs old. Brother(s) Family Medical History: No Reported History Sister(s) Family Medical History: No Reported History General Exam - General Exam Comments Initial Comments: GENERAL: Well-appearing, well-nourished and in no acute distress. HEAD: Atraumatic, normocephalic. EYES: Pupils equal round and reactive to light, extraocular movements intact, sclera anicteric, conjunctiva are normal. ENT: TMs normal, nares patent, oropharynx clear without exudates. Moist mucous membranes. NECK: Normal range of motion, supple without lymphadenopathy or JVD. LUNGS: Breath sounds clear to auscultation bilaterally and equal. No wheezes rales or rhonchi. Pain with palpation of the left upper lateral ribs. No bruising noted on the skin. Increased pain with deep inspiration. HEART: Regular rate and rhythm without murmurs, rubs or gallops. ABDOMEN: Soft, nontender, normoactive bowel sounds. No guarding, no rebound. No masses appreciated. : Deferred EXTREMITIES: Walking boot noted on left lower extremity. No pain in lower upper extremity is. NEUROLOGICAL: Normal speech, normal gait. PSYCH: Normal mood, normal affect. SKIN: Warm, Dry, normal turgor, no rashes or lesions noted. Limitations: no limitations Course Vital Signs 11/06/19 18:53 Temperature 98.5 F Pulse Rate 80 Respiratory 19 Rate Blood Pressure 134/75 O2 Sat by Pulse 96 Oximetry Medical Decision Making - Medical Decision Making Patient is a 64-year-old male presenting with left-sided rib pain after he fell into some trash cans this morning. No LOC, no head injury, no cyanosis. Left- sided rib pain is his only complaint. X-ray showed no acute fractures, chest x- ray is normal. I discussed this with the patient and this is most likely rib contusion. Patient can use ice to the area as well as Tylenol Motrin for pain relief. He is in agreement with this plan of care. Return parameters were discussed with the patient he verbalizes understanding. Disposition Clinical Impression: Fall, Contusion of rib on left side Disposition: HOME SELF-CARE Condition: Stable Instructions (If sedation given, give patient instructions): Rib Contusion (ED) Additional Instructions: Please return to the Emergency Department if symptoms worsen or any other concerns. Use ice to the area as well as Tylenol or Motrin for pain relief. Is patient prescribed a controlled substance at d/c from ED?: No Referrals: Eli Livingston MD [Primary Care Provider] - 1-2 days
--- NOTE | 2019-11-06 20:36 | XR ---
PROCEDURE: XR ribs LT w pa chest xray - 5 views DATE AND TIME: 11/06/2019 7:51 PM CLINICAL INDICATION: [facility]; fall, upper left rib pain TECHNIQUE: Department protocol COMPARISON: None FINDINGS: There is no fracture or malalignment. The soft tissues are unremarkable. No pleural effusio n or pneumothorax. Lungs are clear and well-expanded. No incidental findings. IMPRESSION: NO ACUTE PROCESS.
== END 2019-11-06 20:56 | disposition home or self-care (01) ==
LOC: EC 18:27
DX: S20.212A Contusion of left front wall of thorax, initial encounter (principal); M25.552 Pain in left hip; E11.9 Type 2 diabetes mellitus without complications; E78.5 Hyperlipidemia, unspecified; M17.12 Unilateral primary osteoarthritis, left knee; E03.9 Hypothyroidism, unspecified; F32.9 Major depressive disorder, single episode, unspecified; Z88.0 Allergy status to penicillin; Z79.84 Long term (current) use of oral hypoglycemic drugs; Z79.890 Hormone replacement therapy; Z79.899 Other long term (current) drug therapy; Z96.652 Presence of left artificial knee joint; W00.0XXA Fall on same level due to ice and snow, initial encounter; Y93.89 Activity, other specified; Y92.69 Other specified industrial and construction area as the place of occurrence of the external cause; Y99.0 Civilian activity done for income or pay
CPT/HCPCS: 99283